=== PATIENT | male | born 1970 | race African-American/Black ===

== ENCOUNTER 2016-05-22 05:43 | Emergency (ER) | payer SELFPAY ==
[~2016-05-22] VITALS: Ht 180.3 cm; Wt 93.0 kg
[2016-05-22] MEDS ORDERED: IV NORMAL SALINE 1000ML BAG 1,000 ML IV SCH (06:45)
--- NOTE | 2016-05-22 06:48 | EKG ---
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
[2016-05-22 06:52] LABS: BASO % 1 % (0-3); EOS % 9 % (0-3); HEMATOCRIT 45.5 % (39.0-53.0); HEMOGLOBIN 15.3 g/dL (13.0-17.5); LYMPH # 2.9 x10^3/uL (1.0-4.8); LYMPH % 38 % (24-48); MEAN CORPUSCULAR HEMOGLOBIN 31 pg (25-35); MEAN CORPUSCULAR HGB CONC 34 g/dL (31-37); MEAN CORPUSCULAR VOLUME 91 fL (79-100); MONO % 9 % (0-9); NEUT % 44 % (31-73); PLATELET COUNT 180 x10^3/uL (140-400); RED BLOOD COUNT 5.02 x10^6/uL (4.30-5.70); RED CELL DISTRIBUTION WIDTH 14.9 % (11.5-14.5); WHITE BLOOD COUNT 7.6 x10^3/uL (4.0-11.0)
[2016-05-22 06:58] LABS: CALCIUM 8.6 mg/dL (8.5-10.1); CREATININE 0.8 mg/dL (0.7-1.3); GFR 127.1
[2016-05-22] MEDS ORDERED: DIPHTH,PERTUSS(ACELL),TET TOX 0.5 ML DISP.SYRIN. VAX IM ONE (07:00)
[2016-05-22] MEDS ORDERED: HYDROCODONE/APAP 5/325MG TABLET. PO ONE (07:00)
[2016-05-22] MEDS ORDERED: NEOMY/BACITR/POLYMYXIN OINT PACKET. TP ONE (07:00)
[2016-05-22] MEDS ORDERED: NAPROXEN 500 MG TABLET PO ONE (07:00)
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
[2016-05-22 07:30] VITALS: BP 148/90
[2016-05-22] MEDS ORDERED: NAPR375T3 PO (07:32)
[2016-05-22] MEDS ORDERED: HYDR-971 PO (07:32)
--- NOTE | 2016-05-22 07:53 | RAD ---
Portable AP upright view CXR: Clinical indications: Dizziness. Comparison: None available. Findings: No acute lung infiltrate or pleural effusion or pulmonary edema or lung mass or pneumothorax is seen. The heart size, pulmonary vasculature, mediastinum and both justin are unremarkable. Impression: No acute radiographic abnormality is seen.
== END 2016-05-22 07:46 | disposition home or self-care (01) ==
LOC: ER 05:43
DX: M25.561 Pain in right knee (principal); M25.562 Pain in left knee; G89.29 Other chronic pain; M79.89 Other specified soft tissue disorders; R42 Dizziness and giddiness; M06.9 Rheumatoid arthritis, unspecified; F32.9 Major depressive disorder, single episode, unspecified; F41.9 Anxiety disorder, unspecified; F12.10 Cannabis abuse, uncomplicated; W18.39XA Other fall on same level, initial encounter; Y93.89 Activity, other specified; Y92.89 Other specified places as the place of occurrence of the external cause; Y99.8 Other external cause status
CPT/HCPCS: 36415; 71010; 80048; 85027; 90471; 90715; 93005; 96360; 99285; J7030

== ENCOUNTER 2016-05-29 12:17 | Emergency (ER) | payer SELFPAY ==
[~2016-05-29 12:17] MED LIST: HYDR-971 PO; NAPR375T3 PO
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
[2016-05-29] MEDS ORDERED: HYDROCODONE/APAP 5/325MG TABLET. PO ONE (12:45)
[2016-05-29] MEDS ORDERED: IV NORMAL SALINE 1000ML BAG 1,000 ML IV ONE (12:45)
--- NOTE | 2016-05-29 12:58 | RAD ---
INDICATION: dizziness yesterday, r/o acute process COMPARISON: 05/22/2016 FINDINGS: 2 views of chest obtained No focal airspace consolidation. Mediastinal contour is unremarkable. No gross osseous destructive lesion. IMPRESSION: No focal airspace consolidation or edema.
[2016-05-29 13:01] LABS: BASO # 0.1 x10^3/uL (0.0-0.2); BASO % 1 % (0-3); EOS % 5 % (0-3); HEMATOCRIT 47.3 % (39.0-53.0); HEMOGLOBIN 15.7 g/dL (13.0-17.5); LYMPH # 3.9 x10^3/uL (1.0-4.8); LYMPH % 44 % (24-48); MEAN CORPUSCULAR HEMOGLOBIN 31 pg (25-35); MEAN CORPUSCULAR HGB CONC 33 g/dL (31-37); MEAN CORPUSCULAR VOLUME 92 fL (79-100); MONO % 6 % (0-9); NEUT % 44 % (31-73); PLATELET COUNT 184 x10^3/uL (140-400); RED BLOOD COUNT 5.12 x10^6/uL (4.30-5.70); RED CELL DISTRIBUTION WIDTH 14.9 % (11.5-14.5); WHITE BLOOD COUNT 8.8 x10^3/uL (4.0-11.0)
[2016-05-29 13:15] LABS: CALCIUM 9.1 mg/dL (8.5-10.1); CREATININE 0.9 mg/dL (0.7-1.3); GFR 110.9; POTASSIUM 3.5 mmol/L (3.5-5.1)
[2016-05-29 13:20] LABS: ALBUMIN 3.9 g/dL (3.4-5.0); TOTAL BILIRUBIN 0.4 mg/dL (0.2-1.0)
[2016-05-29 13:45] VITALS: BP 147/97
[2016-05-29] MEDS ORDERED: HYDR-2672 PO (13:52)
--- NOTE | 2016-05-30 12:18 | EKG ---
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
== END 2016-05-29 14:15 | disposition home or self-care (01) ==
LOC: ER 12:17
DX: M79.89 Other specified soft tissue disorders (principal); R55 Syncope and collapse; F12.10 Cannabis abuse, uncomplicated
CPT/HCPCS: 36415; 71020; 80053; 83880; 84484; 85027; 93005; 96360; 99285; J7030

== ENCOUNTER 2016-07-04 10:01 | Emergency (ER) | payer SELFPAY ==
[~2016-07-04] VITALS: Ht 181.6 cm; Wt 94.3 kg
[~2016-07-04 10:01] MED LIST changes: +HYDR-2672 PO
[2016-07-04 10:13] VITALS: BP 132/81
[2016-07-04] MEDS ORDERED: OXYCODONE/APAP 5/325 TABLET. PO ONE (11:00)
[2016-07-04] MEDS ORDERED: DIPHTH,PERTUSS(ACELL),TET TOX 0.5 ML DISP.SYRIN. VAX IM ONE (11:00)
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
--- NOTE | 2016-07-04 11:06 | RAD ---
Indication fall several days earlier. Persistent pain. AP and lateral views of the left forearm were obtained. There is a fracture of the radial head involving the cortical surface. This is only seen on the AP view. Significant joint fluid is not seen. An additional bony abnormality is not apparent. IMPRESSION: Fractured radial head
[2016-07-04] MEDS ORDERED: HYDR-2666 PO (11:16)
== END 2016-07-04 11:40 | disposition home or self-care (01) ==
LOC: ER 10:01
DX: S52.122D Displaced fracture of head of left radius, subsequent encounter for closed fracture with routine healing (principal); M25.522 Pain in left elbow; M79.632 Pain in left forearm; M06.9 Rheumatoid arthritis, unspecified; W11.XXXA Fall on and from ladder, initial encounter; Y93.89 Activity, other specified; Y92.89 Other specified places as the place of occurrence of the external cause; Y99.8 Other external cause status
CPT/HCPCS: 73090; 90471; 90715; 99284-25

== ENCOUNTER 2016-07-24 17:45 | Emergency (ER) | payer SELFPAY ==
[~2016-07-24] VITALS: Ht 180.3 cm; Wt 87.1 kg
[~2016-07-24 17:45] MED LIST changes: +HYDR-2666 PO
[2016-07-24 17:54] VITALS: BP 109/62
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
== END 2016-07-24 18:30 | disposition left against medical advice (07) ==
LOC: ER 17:45
DX: M25.522 Pain in left elbow (principal); M79.602 Pain in left arm; M19.90 Unspecified osteoarthritis, unspecified site
CPT/HCPCS: 99281

== ENCOUNTER 2021-02-10 11:00 | Emergency (ER) | payer OTHER ==
[~2021-02-10] VITALS: Ht 180.3 cm; Wt 172.0 kg
[~2021-02-10 11:00] MED LIST changes: -HYDR-2666 PO; -HYDR-2672 PO; +HYDR-2761 PO; +HYDR-2769 PO; +HYDR-3164 PO; -HYDR-971 PO; +NAPR-695 PO; -NAPR375T3 PO
[2021-02-10] MEDS ORDERED: HYDROcodone/APAP 5/325MG 1 TAB TABLET PO ONE (13:00)
[2021-02-10] MEDS ORDERED: KETOROLAC 60 MG/2 ML VIAL. IM ONE (13:00)
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
[2021-02-10] MEDS ORDERED: HYDR-2761 PO (14:58)
[2021-02-10] MEDS ORDERED: IBUP-1007 PO (14:58)
[2021-02-10] MEDS ORDERED: CYCL10TA19 PO (14:58)
[2021-02-10 15:00] VITALS: BP 144/80
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
== END 2021-02-10 15:05 | disposition home or self-care (01) ==
LOC: ER 11:00
DX: M25.521 Pain in right elbow (principal); M25.562 Pain in left knee; M25.572 Pain in left ankle and joints of left foot; M79.672 Pain in left foot; M54.50 Low back pain, unspecified; M54.6 Pain in thoracic spine; Z87.891 Personal history of nicotine dependence; V89.2XXA Person injured in unspecified motor-vehicle accident, traffic, initial encounter; Y93.89 Activity, other specified; Y92.488 Other paved roadways as the place of occurrence of the external cause; Y99.8 Other external cause status
CPT/HCPCS: 72125; 72128; 72131; 73080; 73564; 73610; 73630; 96372; 99285; J1885

== ENCOUNTER 2021-02-16 19:39 | Emergency (ER) | payer OTHER ==
[~2021-02-16] VITALS: Ht 180.3 cm; Wt 90.0 kg
[~2021-02-16 19:39] MED LIST changes: +CYCL10TA19 PO; +IBUP-1007 PO
[2021-02-16] MEDS ORDERED: ORPHENADRINE CITRATE 60 MG/2 ML VIAL. IM ONE (20:15)
[2021-02-16] MEDS ORDERED: HYDROcodone/APAP 5/325MG 1 TAB TABLET PO ONE (20:15)
[2021-02-16] MEDS ORDERED: DEXAMETHASONE 4 MG TABLET PO ONE (20:15)
[2021-02-16] MEDS ORDERED: HYDR-2761 PO (20:20)
[2021-02-16] MEDS ORDERED: PRED20TA PO (20:20)
[2021-02-16] MEDS ORDERED: ORPH100T PO (20:20)
[2021-02-16 20:21] VITALS: BP 101/46
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
== END 2021-02-16 20:44 | disposition home or self-care (01) ==
LOC: ER 19:39
DX: S16.1XXA Strain of muscle, fascia and tendon at neck level, initial encounter (principal); M54.42 Lumbago with sciatica, left side; F17.200 Nicotine dependence, unspecified, uncomplicated; V49.49XA Driver injured in collision with other motor vehicles in traffic accident, initial encounter; Y93.89 Activity, other specified; Y92.488 Other paved roadways as the place of occurrence of the external cause; Y99.8 Other external cause status
CPT/HCPCS: 96372; 99283; J2360

== ENCOUNTER 2021-06-02 15:51 | Emergency (ER) | payer SELFPAY ==
[~2021-06-02] VITALS: Ht 180.3 cm; Wt 90.9 kg
[~2021-06-02 15:51] MED LIST changes: +ORPH100T PO; +PRED20TA PO
[2021-06-02 15:58] VITALS: BP 134/71
[2021-06-02] MEDS ORDERED: LIDOCAINE WITH 8.4% SOD BICARB 3 ML DISP.SYRIN. INJ ONE (16:30)
[2021-06-02] MEDS ORDERED: DIPHTH,PERTUSS(ACELL),TET TOX 0.5 ML DISP.SYRIN. VAX IM ONE (16:30)
[2021-06-02] MEDS ORDERED: LIDOCAINE/EPI/TETRACAINE TOPICAL GEL 3 ML. TP ONE (16:30)
[2021-06-02] MEDS ORDERED: HYDROcodone/APAP 5/325MG 1 TAB TABLET PO ONE (16:30)
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
[2021-06-02] MEDS ORDERED: CIPR500T94 PO (18:12)
[2021-06-02] MEDS ORDERED: HYDR-2761 PO (18:12)
--- NOTE | 2021-06-02 18:13 | PHYS DOC ---
Past Medical History Past Medical History: Arthritis Additional Past Medical Histor: ECZEMA Past Surgical History: Other Additional Past Surgical Histo: LEFT TOE Smoking Status: Current Every Day Smoker Alcohol Use: Occasionally Drug Use: None General Adult EDM: Chief Complaint: LACERATION/AVULSION HPI: HPI: Patient is a 51 year old male patient presented to the ED today with a foreign body in the right foot, patient states he was walking on the side of the [place] with house slippers and stepped on something. Denies any history of diabetes or venous insufficiency Review of Systems: Review of Systems: Constitutional: Denies fever or chills. [] Musculoskeletal: Denies back pain or joint pain. [] Integument: Reports foreign object in the right foot Neurologic: Denies headache, focal weakness or sensory changes. [] Psychiatric: Denies depression or anxiety. [] Heart Score: C/O Chest Pain: N/A Risk Factors: Risk Factors: DM, Current or recent (<one month) smoker, HTN, HLP, family history of CAD, obesity. Risk Scores: Score 0 - 3: 2.5% MACE over next 6 weeks - Discharge Home Score 4 - 6: 20.3% MACE over next 6 weeks - Admit for Clinical Observation Score 7 - 10: 72.7% MACE over next 6 weeks - Early Invasive Strategies Current Medications: Current Medications Medications (Trade) Dose Ordered Sig/Kayleigh Start Time Stop Time Status Last Admin Dose Admin Acetaminophen/ Hydrocodone Bitart (Lortab 5/325) 2 tab 1X ONCE 06/02/21 16:30 06/02/21 16:31 DC 06/02/21 16:30 2 TAB Diphtheria/ Tetanus/Acell Pertussis (Boostrix) 0.5 ml ONCE ONCE 06/02/21 16:30 06/02/21 16:31 DC Lidocaine HCl (Buffered Lidocaine 1%) 3 ml 1X ONCE 06/02/21 16:30 06/02/21 16:31 DC Tetracaine/ Epinephrine/ Lidocaine (Let (Qkwl-Fnluwwi-Gvctm) Gel) 3 ml 1X ONCE 06/02/21 16:30 06/02/21 16:31 DC 06/02/21 16:30 3 ML Allergies: Allergies: Allergies Coded Allergies Type Severity Reaction Last Updated Verified No Known Drug Allergies 05/22/16 No Physical Exam: PE: Constitutional: Well developed, well nourished, no acute distress, non-toxic appearance. [] Skin: Right heel with a puncture wound roughly 0.5 cm, there is a sensation of a foreign object at the opening of the wound. Back: No tenderness, no CVA tenderness. [] Extremities: No tenderness, no cyanosis, no clubbing, ROM intact, no edema. [] Neurologic: Alert and oriented X 3, normal motor function, normal sensory function, no focal deficits noted. [] Psychologic: Affect normal, judgement normal, mood normal. [] Current Patient Data: Vital Signs: Vital Signs Date Time Temp Pulse Resp B/P (MAP) Pulse Ox O2 Delivery O2 Flow Rate FiO2 06/02/21 16:30 18 96 Room Air 06/02/21 15:58 98.1 76 134/71 (92) 98.1 EKG: EKG: [] Radiology/Procedures: Radiology/Procedures: []PROCEDURE: FOOT LEFT 3V EXAM: Left foot, 3 views. HISTORY: Penetrating injury. Pain. COMPARISON: None. FINDINGS: 3 views of the left foot are obtained. There are fixation screws with in the first metatarsal. There is no acute fracture. There is a hallux valgus deformity. There is no radiodense foreign body. IMPRESSION: 1. No acute osseous finding or radiodense foreign body. 2. Internal fixation screws within the first metatarsal. 3. Hallux valgus. Electronically signed by: Sissy Rangel MD (06/02/2021 4:48 PM) [id number] DICTATED and SIGNED BY: SISSY RANGEL MD DATE: 06/02/21 [id number] Indication: Foreign object in the right foot Procedure: The area of the foreign body was right heel. Local anesthesia over the foreign body site was let solution then in 30 minutes 1% of buffered lidocaine was added to the area. The area was cleaned with 100 mL of normal saline. An 11 blade was used to make tiny cuts around the foreign object, forceps were used to pull the foreign object a 2 cm splinter. The area was cleaned and covered with nonstick dressing The patient tolerated the procedure well Complications: none Course & Med Decision Making: Course & Med Decision Making Pertinent Labs and Imaging studies reviewed. (See chart for details) This a 51-year-old male patient presented to the ED today stating he stepped on something and has a foreign object in the right foot. X-rays of the right foot were negative for an obvious foreign object. Physical exam was noted for a foreign object which was successfully removed as noted in procedures ( a 2 cm splinter). Tetanus updated. Discharged on Cipro Dragon Disclaimer: Dragon Disclaimer: This electronic medical record was generated, in whole or in part, using a voice recognition dictation system. Departure Departure Impression: Primary Impression: Foreign body in foot, right Qualified Codes: S90.851A - Superficial foreign body, right foot, initial encounter Disposition: HOME / SELF CARE / HOMELESS Condition: STABLE Referrals: NO PCP (PCP) please follow up with your primary care doctor in one week Patient Instructions: Foreign Body-Brief Additional Instructions: We removed a splinter from your right foot. Please keep the area clean and dry. Remove the dressing in 24 hours, if is not bleeding or draining and leave it open to air. Apply Neosporin to the area twice a day. You can shower and wash the area twice a day. Take the prescribed antibiotics until completed. Follow- up with your doctor in 1 week, come back to the ED at any point wound condition worsens or you have a fever Scripts Hydrocodone Bit/Acetaminophen (HYDROCODONE-APAP 5-325 ) 1 Tab Tablet 1 TAB PO PRN Q6HRS PRN for PAIN, #14 TAB 0 Refills Prov: SUKUMAR GALLAGHER APRN 06/02/21 Ciprofloxacin Hcl (CIPRO) 500 Mg Tablet 1 TAB PO BID for 10 Days, #20 TAB 0 Refills Prov: SUKUMAR GALLAGHER APRN 06/02/21 SUKUMAR GALLAGHER APRN Jun 02, 2021 18:13
== END 2021-06-02 18:15 | disposition home or self-care (01) ==
LOC: ER 15:51
DX: S90.851A Superficial foreign body, right foot, initial encounter (principal); M19.90 Unspecified osteoarthritis, unspecified site; F17.200 Nicotine dependence, unspecified, uncomplicated; W22.8XXA Striking against or struck by other objects, initial encounter; Y93.01 Activity, walking, marching and hiking; Y92.89 Other specified places as the place of occurrence of the external cause; Y99.8 Other external cause status
CPT/HCPCS: 10120; 73630; 90471; 90715; 99285; J3490